=== PATIENT | female | born 1975 | race Caucasian/White ===

== ENCOUNTER 2019-12-26 08:02 | Emergency (ER) | payer OTHER, SELFPAY ==
[2019-12-26 08:24] VITALS: BP 132/83; PULSE 86; RESP 18; TEMP 36.7; O2SAT 98
--- NOTE | 2019-12-26 08:36 | ED.DENTAL ---
HPI - Dental/Oral General Chief complaint: Dental/Oral Stated complaint: tooth abscess Time Seen by Provider: 12/26/19 08:36 Source: patient Mode of arrival: ambulatory Limitations: no limitations History of Present Illness HPI Narrative: Bonnie Hernandez is a 44 yo female with depression, PTSD, comes to express care with pain and swelling on the lower right. Has 5 natural teeth left in the lower jaw upper teeth are dentures. States she has had difficulty finding care primarily due to insurance. This episode is been going on for 2 weeks Related Data Home Medications Medication Instructions Recorded Confirmed alprazolam 12/26/19 quetiapine 12/26/19 sertraline mg 12/26/19 Allergies Allergy/AdvReac Type Severity Reaction Status Date / Time Penicillins Allergy Mild Rash Verified 02/22/19 12:17 Review of Systems Review of Systems: Narrative: CONSTITUTIONAL: Denies fever, chills, sweats. EYES: Denies visual changes, redness, discharge. ENT: Denies rhinorrhea, congestion, sore throat, otalgia. Dental pain CARDIOVASCULAR: Denies chest pain, palpitations, edema. RESPIRATORY: Denies dyspnea, wheezing, cough GASTROINTESTINAL: Denies abdominal pain, nausea, vomiting, diarrhea. GENITOURINARY: Denies dysuria, hematuria, abnormal discharge SKIN: Denies rash or itching. NEUROLOGIC: Denies numbness, or focal weakness. PSYCHIATRIC: Denies anxiety or depression. [facility] Family History Family History Other Cervical cancer Social History Social History (Updated 12/26/19 @ 08:38 by Ceci Noel CNP) Smoking status: Former smoker Alcohol intake: current Comments At time of signature, I agree with nursing past medical, surgical, social and family history. There is no relevant family history pertinent to the presenting complaint. Exam Narrative: Exam Narrative: GENERAL: This is a well-nourished, well-developed patient, in mild distress. HEAD: normocephalic, atraumatic. EYES: Sclera clear/white. Vision is grossly intact. EARS: External ears normal. Hearing grossly intact. NOSE: External nose normal without nasal discharge, nares without redness, no rhinorrhea. THROAT: Mucous membranes moist, multiple dental carries and broken teeth on lower jaw NECK: Neck supple, CARDIOVASCULAR: Regular rate and rhythm without murmurs, gallops, or rubs. RESPIRATORY: Clear to auscultation. Breath sounds equal bilaterally. No wheezes, rales, or rhonchi. GASTROINTESTINAL: Abdomen soft, SKIN: warm, intact with no suspicious lesions or rash, good texture and turgor. NEURO: awake, alert, and oriented to person, place and time. There were no obvious focal neurologic abnormalities. Steady gait EXTREMITIES: Normal range of motion. BACK: Nontender without deformity Course Course Emergency Course: Started on clindamycin (due to PCN allergy) , started on tramadol and ibuprofen; must follow up with dentist Vital Signs Vital signs: Vital Signs Temperature 98.0 F 12/26/19 08:24 Pulse Rate 86 12/26/19 08:24 Respiratory Rate 18 12/26/19 08:24 Blood Pressure 132/83 12/26/19 08:24 Pulse Oximetry 98 12/26/19 08:24 Temperature 98.0 F 12/26/19 08:24 Pulse Rate 86 12/26/19 08:24 Respiratory Rate 18 12/26/19 08:24 Blood Pressure 132/83 12/26/19 08:24 Pulse Oximetry 98 12/26/19 08:24 MDM - Dental/Oral Differential Diagnosis Differential diagnosis: Likely gingival abscess, dental caries, dental abscess and other Discharge Plan Discharge Clinical Impression: Dental abscess Patient Disposition: Home, Self-Care Condition: Stable Instructions: Dental Abscess (ED) Additional Instructions: Follow-up with dental care such as [facility] dental school or further private provider Initiate antibiotic prescription as written; ibuprofen eat some food Prescriptions: New clindamycin HCl 300 mg capsule 300 mg PO Q8H Qty: 30 RF: 0 ibupr
== END 2019-12-26 08:56 | disposition home or self-care (01) ==
PROVIDERS: Emergency Provider Nurse Practitioner
DX: K04.7 Periapical abscess without sinus (principal); F32.9 Major depressive disorder, single episode, unspecified; F43.10 Post-traumatic stress disorder, unspecified; Z87.891 Personal history of nicotine dependence
CPT/HCPCS: 99213; G0463

== ENCOUNTER 2020-04-27 15:30 | Emergency (ER) | payer OTHER, SELFPAY ==
[2020-04-27 15:40] VITALS: BP 145/85; PULSE 102; RESP 16; TEMP 37.1; O2SAT 100
--- NOTE | 2020-04-27 16:20 | ED.DENTAL ---
HPI - Dental/Oral General Chief complaint: Dental/Oral Stated complaint: Tooth Pain Source: patient and RN notes reviewed Mode of arrival: ambulatory Limitations: no limitations History of Present Illness HPI Narrative: This is a 45-year-old white female that he came in to urgent care with complaints of tooth pain with gum swelling. Patient has decayed teeth at 23,24, 25, and 26. Patient has dentures to her upper teeth. She notes that she has to get an implant to her lower teeth and have a dental appointment next month. The patient denies SOB, CP, palpitation, extremity numbness, lightheadedness, dizziness, constipation, diarrhea, chills, or fever..She will be given antibiotic and a short course of pain medication. Patient noted that in the past she has taken clindamycin for her gum infection. Generalized tenderness noticed on labs MD Complaint: tooth pain Related Data Home Medications Medication Instructions Recorded Confirmed alprazolam 12/26/19 quetiapine 12/26/19 sertraline mg 12/26/19 Allergies Allergy/AdvReac Type Severity Reaction Status Date / Time Penicillins Allergy Mild Rash Verified 02/22/19 12:17 Review of Systems Review of Systems: All systems reviewed & are unremarkable except as noted in HPI and below (10 point system review) PMFSH Family History Family History Other Cervical cancer Social History Social History (Updated 12/26/19 @ 08:38 by Ceci Noel CNP) Smoking status: Former smoker Alcohol intake: current Exam Narrative: Exam Narrative: GENERAL: This is a well-nourished, well-developed patient, in no apparent distress. HEAD: normocephalic, atraumatic. EYES: PERRL. Sclera clear/white. Vision is grossly intact. EARS: External ears normal, auditory canals clear and without drainage, TMs normal without perforation. Hearing grossly intact. NOSE: External nose normal with no obvious nasal discharge, nares without redness, no rhinorrhea. THROAT: Mucous membranes moist, posterior pharynx clear. Teeth decay to numbers 23, 24, 25, 26. Edema to the lower gums and teeth with decay. NECK: Neck supple, non-tender without lymphadenopathy, masses or thyromegaly. CARDIOVASCULAR: Regular rate and rhythm without murmurs, gallops, or rubs. RESPIRATORY: Clear to auscultation. Breath sounds equal bilaterally. No wheezes, rales, or rhonchi. GASTROINTESTINAL: Abdomen soft, non-tender, nondistended. Bowel sounds are active. No hepato-splenomegaly, or palpable masses. No guarding. SKIN: warm, intact with no suspicious lesions or rash, good texture and turgor. NEURO: awake, alert, and oriented to person, place and time. There were no obvious focal neurologic abnormalities. Steady gait EXTREMITIES: Normal range of motion. No edema. No calf tenderness. Negative Homans sign bilaterally. BACK: Nontender without deformity or crepitance. No flank tenderness. Const: General: no acute distress Course Course Emergency Course: Patient will be given pain medication with antibiotic Vital Signs Vital signs: Vital Signs Temperature 98.7 F 04/27/20 15:40 Pulse Rate 102 H 04/27/20 15:40 Respiratory Rate 16 04/27/20 15:40 Blood Pressure 145/85 H 04/27/20 15:40 Pulse Oximetry 100 04/27/20 15:40 Temperature 98.7 F 04/27/20 15:40 Pulse Rate 102 H 04/27/20 15:40 Respiratory Rate 16 04/27/20 15:40 Blood Pressure 145/85 H 04/27/20 15:40 Pulse Oximetry 100 04/27/20 15:40 Discharge Plan Discharge Clinical Impression: Dental caries Patient Disposition: Home, Self-Care Condition: Stable Instructions: Antibiotic Form, Toothache (ED) Additional Instructions: Avoid temperature extremes May apply heat or ice to the face Gentle brushing and flossing Antibiotic as directed Tylenol for lesser pain Use ibuprofen regularly Use the medication as provided for severe pain--caution each tablet contains 325
== END 2020-04-27 16:23 | disposition home or self-care (01) ==
PROVIDERS: Emergency Provider Nurse Practitioner
DX: K02.9 Dental caries, unspecified (principal); Z87.891 Personal history of nicotine dependence
CPT/HCPCS: 99213; G0463

== ENCOUNTER 2021-04-06 12:06 | Emergency (ER) | payer BC, SELFPAY ==
[2021-04-06 12:18] VITALS: BP 115/83; PULSE 95; RESP 16; TEMP 36.3; O2SAT 100
--- NOTE | 2021-04-06 12:57 | ED.BACK ---
HPI - Back Pain/Injury General Chief Complaint: Extremity Injury, Upper Stated Complaint: left shoulder pain Source: patient and RN notes reviewed Limitations: no limitations History of Present Illness HPI Narrative: The unvaccinated patient, non-smoker/none drinker who is on several meds inc for mood, presents with left shoulder pain. Patient states she awoke with left medial scapular pain that is mild, worse with motion, or at endpoints of deep breathing. No fever, cough, shortness of breath, cough/wheeze , neck pain, numbness/weakness, radiating pain; declines Covid testing, CXR Related Data Home Medications Medication Instructions Recorded Confirmed alprazolam 0.25 mg PO PRN PRN 12/26/19 04/06/21 quetiapine 400 mg PO HS 12/26/19 04/06/21 sertraline 100 mg PO DAILY 12/26/19 04/06/21 pantoprazole 40 mg PO DAILY 04/06/21 04/06/21 quetiapine 25 mg PO TID 04/06/21 04/06/21 Allergies Allergy/AdvReac Type Severity Reaction Status Date / Time Penicillins Allergy Mild Rash Verified 04/06/21 12:21 Review of Systems Review of Systems: General/Constitutional: No weight loss,fever Eyes: N0: Redness,discharge Ears/Nose/Throat: No: Epistaxis,ear discharge Respiratory: Denies: Hemoptysis Gastrointestinal: No Vomiting, Bleeding-rectal Skin: No Lumps, eruption Neurologic: No Focal Weakness,Sz Hematologic: Denies: Petechiae/Purpura Psychiatric: No: Suicida ideationl All Other Systems: Reviewed and Negative [facility] Family History Family History Other Cervical cancer Social History Social History (Updated 12/26/19 @ 08:38 by Ceci Noel CNP) Smoking status: Former smoker Alcohol intake: current Comments At time of signature, agree with nursing past medical, surgical, social and family history. There is no relevant family history pertinent to the presenting complaint Exam Narrative: General Appearance: Well appearing, Conjunctiva clear Mouth/Throat: Normal appearing, Normal lips, Supple Respiratory: Airway patent, No respiratory distress Musculoskeletal: Full ROM, point tenderness of the left rhomboid/scapular margin Cardio pulmonary: CTA, RRR Abdomen: Soft, Non-tender, No massess, Skin: Warm, Dry Neurological: A&O x3, Normal affect Course Vital Signs Vital signs: Vital Signs Temperature 97.4 F L 04/06/21 12:18 Pulse Rate 95 04/06/21 12:18 Respiratory Rate 16 04/06/21 12:18 Blood Pressure 115/83 04/06/21 12:18 Pulse Oximetry 100 04/06/21 12:18 Temperature 97.4 F L 04/06/21 12:18 Pulse Rate 95 04/06/21 12:18 Respiratory Rate 16 04/06/21 12:18 Blood Pressure 115/83 04/06/21 12:18 Pulse Oximetry 100 04/06/21 12:18 Discharge Plan Discharge Clinical Impression: Strain of rhomboid muscle Qualifiers: Encounter type: initial encounter Qualified Code(s): S29.012A - Strain of muscle and tendon of back wall of thorax, initial encounter Patient Disposition: Home, Self-Care Condition: Stable Instructions: Thoracic Back Strain (ED) Prescriptions: New prednisone 20 mg tablet 60 mg PO DAILY Qty: 9 RF: 0 acetaminophen-codeine 300-30 mg tablet 1 - 1.5 tablet PO HS PRN (Reason: pain) Qty: 20 RF: 0 No Action quetiapine 25 mg tablet 25 mg PO TID RF: 0 pantoprazole 40 mg tablet,delayed release (DR/EC) 40 mg PO DAILY RF: 0 sertraline 100 mg tablet 100 mg PO DAILY RF: 0 alprazolam 0.25 mg tablet 0.25 mg PO PRN PRN (Reason: Anxiety) RF: 0 quetiapine 400 mg tablet 400 mg PO HS RF: 0 tramadol 50 mg tablet 50 mg PO Q6H PRN (Reason: pain) Qty: 10 RF: 0 Follow-up/Referrals: Roz,KIKI Sam [Primary Care Provider] -
== END 2021-04-06 13:05 | disposition home or self-care (01) ==
PROVIDERS: Emergency Provider Emergency Medicine; PCP Physician Assistant
DX: S29.012A Strain of muscle and tendon of back wall of thorax, initial encounter (principal); X58.XXXA Exposure to other specified factors, initial encounter; Z87.891 Personal history of nicotine dependence; K21.9 Gastro-esophageal reflux disease without esophagitis; F41.9 Anxiety disorder, unspecified; F32.A Depression, unspecified
CPT/HCPCS: 99213; G0463

== ENCOUNTER 2021-12-13 13:25 | Emergency (ER) | payer OTHER, BC, SELFPAY ==
--- NOTE | ~2021-12-13 | XR_ITS ---
XR foot RT min 3V DATE: 12/13/2021 13:54 INDICATION: Injury yesterday. Lateral pain at fourth and fifth metatarsal region TECHNIQUE: 4 views COMPARISON: None FINDINGS: There is mild osteoarthritis at the first metatarsophalangeal joint. Mild hallux valgus and bunion deformity. No fracture or dislocation, periosteal reaction or bone destruction. IMPRESSION: Mild osteoarthritis at first metatarsophalangeal joint Mild hallux valgus and bunion deformity Reviewed, dictated and finalized at location A.
[2021-12-13 13:45] VITALS: BP 148/86; PULSE 103; RESP 18; TEMP 37.4; O2SAT 99
--- NOTE | 2021-12-13 13:52 | ED.LOWEXIN ---
HPI - Extremity Injury (Lower) General Chief Complaint: Extremity Injury, Lower Stated Complaint: rt foot injury/work related injury Time Seen by Provider: 12/13/21 13:50 Source: patient, RN notes reviewed and old records reviewed Mode of arrival: ambulatory Limitations: no limitations History of Present Illness HPI Narrative: 46-year-old female who presents to [facility] care with complaints of injury to her right foot which occurred at work yesterday when a 10 foot ladder mechanism fell onto the lateral aspect of her right foot. Patient has small abrasion on the lateral side of her foot with minimal swelling verbalized. Patient reports that the pain to her foot increases with weight bearing. Patient has been taking Ibuprofen and Naprosyn for her discomfort. She denies any tingling or numbness to her right foot, has full ROM. MD complaint: foot injury Onset (ago): day(s) (1) Injury: Right: foot (lateral aspect) Type of Injury: blunt Severity scale (1-10): 4 Exacerbating factors: weight bearing Treatments prior to arrival: NSAIDS Related Data Home Medications Medication Instructions Recorded Confirmed quetiapine 400 mg tablet 400 mg PO HS 12/26/19 12/13/21 sertraline 100 mg tablet 100 mg PO DAILY 12/26/19 12/13/21 quetiapine 25 mg tablet 25 mg PO QAM 04/06/21 12/13/21 divalproex 250 mg tablet,delayed 1 tablet PO HS 12/13/21 12/13/21 release Allergies Allergy/AdvReac Type Severity Reaction Status Date / Time Penicillins Allergy Mild Rash Verified 12/13/21 13:48 Review of Systems Review of Systems: CONSTITUTIONAL: Denies fever, chills, or sweats. EYES: Denies visual changes, redness, or discharge. ENT: Denies rhinorrhea, congestion, sore throat, or otalgia. CARDIOVASCULAR: Denies chest pain, palpitations, or edema. RESPIRATORY: Denies cough or dyspnea. GASTROINTESTINAL: Denies abdominal pain, nausea, vomiting, or diarrhea. GENITOURINARY: Denies dysuria or hematuria. SKIN: Denies rash or itching. MUSCULOSKELETAL: Denies back pain, positive for right foot pain lateral aspect, or myalgia. NEUROLOGIC: Denies headache, numbness, or weakness. PSYCHIATRIC: History of anxiety and depression. [facility] Past Medical History Medical History (Updated 12/13/21 @ 14:33 by Kayla Pennington NP) Anxiety and depression Arthritis of both hips Panic attacks PTSD (post-traumatic stress disorder) Surgical History Surgical History (Updated 12/13/21 @ 14:35 by Kayla Pennington NP) H/O cone biopsy of cervix Family History Family History Other Cervical cancer Social History Social History (Updated 12/26/19 @ 08:38 by Ceci Noel CNP) Smoking status: Former smoker Alcohol intake: current Comments At time of signature, agree with nursing past medical, surgical, social and family history. There is no relevant family history pertinent to the presenting complaint Exam Narrative: GENERAL: Well-appearing, well-nourished, and in no acute distress. HEAD: Normocephalic, atraumatic. EYES: PERRLA and EOMI. ENT: Nares clear, no rhinorrhea or epistaxis. Mucous membranes moist.TM's normal with good light reflex, throat pink with no lesion or exudates. NECK: Supple. no lymphadenopathy CHEST: Clear to auscultation. No respiratory distress.SAO2 99% on room air HEART: Regular rate and rhythm. No murmur heard. Normal peripheral pulses. ABDOMEN: Soft, nontender, nondistended, normal active bowel sounds. EXTREMITIES: Normal range of motion. no edema.Exception noted to right lateral foot with small amount of edema to lateral right foot with small abrasion noted related to injury. Patient having some increase in pain with weight bearing on her right foot with some limping gait noted. Circulation, sensation and mobility is intact, pulses strong to right foot. SKIN: Warm, dry, no rash. NEURO: No focal deficits. Alert and oriented x3. Course Course Level of Care: Express Care Visit
== END 2021-12-13 14:21 | disposition home or self-care (01) ==
PROVIDERS: Emergency Provider Registered Nurse; PCP Physician Assistant
DX: S90.31XA Contusion of right foot, initial encounter (principal); W20.8XXA Other cause of strike by thrown, projected or falling object, initial encounter; Z87.891 Personal history of nicotine dependence; M16.0 Bilateral primary osteoarthritis of hip; F41.9 Anxiety disorder, unspecified; F32.A Depression, unspecified; F43.10 Post-traumatic stress disorder, unspecified
CPT/HCPCS: 73630; 99213; G0463

== ENCOUNTER 2023-09-27 09:10 | Emergency (ER) | payer BC, SELFPAY ==
--- NOTE | 2023-09-27 09:21 | ED.GENADULT ---
HPI - General Adult General Chief complaint: Skin/Abscess/Foreign Body Stated complaint: right pinkie toe red,swollen Time Seen by Provider: 09/27/23 09:31 Source: patient, RN notes reviewed and old records reviewed Mode of arrival: ambulatory Limitations: no limitations History of Present Illness HPI narrative: 48-year-old female presents to the [facility] with a right lateral 5th toe, red and swollen for 3 days. No treatment prior to arrival Patient denies any trauma. Onset (ago): day(s) (3) Treatments prior to arrival: none Related Data Home Medications Medication Instructions Recorded Confirmed sertraline 100 mg tablet 100 mg PO DAILY 12/26/19 09/27/23 atenolol 25 mg tablet 25 mg PO DAILY 09/27/23 09/27/23 atorvastatin 20 mg tablet 20 mg PO DAILY 09/27/23 09/27/23 divalproex 500 mg tablet,extended 500 mg PO DAILY 09/27/23 09/27/23 release 24 hr ergocalciferol (vitamin D2) 1,250 1,250 mcg PO WEEKLY 09/27/23 09/27/23 mcg (50,000 unit) capsule lorazepam 0.5 mg tablet 0.5 mg PO DAILY 09/27/23 09/27/23 olanzapine 15 mg-samidorphan 10 mg 1 tablet PO DAILY 09/27/23 09/27/23 tablet (Lybalvi) pantoprazole 40 mg tablet,delayed 40 mg PO DAILY 09/27/23 09/27/23 release trazodone 100 mg tablet 100 mg PO DAILY 09/27/23 09/27/23 Allergies Allergy/AdvReac Type Severity Reaction Status Date / Time Penicillins Allergy Mild Rash Verified 09/27/23 09:22 Review of Systems Review of Systems: All systems reviewed & are unremarkable except as noted in HPI and below Constitutional: Constitutional: Reports no additional constitutional complaints Eyes: Eyes: Reports no additional eye complaints ENT: Reports system reviewed and no additional complaints, except as documented Cardiovascular: Cardiovascular: Reports no additional cardiovascular complaints, Denies chest pain and Denies dyspnea Respiratory: Respiratory: Reports no additional respiratory complaints, Denies chest congestion, Denies cough and Denies dyspnea Gastrointestinal: Gastrointestinal: Reports no additional gastrointestinal complaints, Denies abdominal pain, Denies nausea and Denies vomiting Musculoskeletal: Musculoskeletal: Reports as per HPI, Denies arthralgias, Denies joint swelling and Denies numbness Integumentary/Breasts: Skin/Breast: Reports as per HPI Neurologic: Reports system reviewed and no additional complaints, except as documented Psychiatric: Psychiatric: Reports no additional psychiatric complaints Allergic/Immunologic: Allergic/Immunologic: Reports no additional allergic/immunologic complaints [facility] Past Medical History Medical History (Updated 09/27/23 @ 09:[address] APRN) Anxiety and depression Arthritis of both hips H/O gastroesophageal reflux (GERD) High cholesterol Panic attacks PTSD (post-traumatic stress disorder) Surgical History Surgical History H/O cone biopsy of cervix Family History Family History Other Cervical cancer Social History Social History Smoking status: Former smoker Alcohol intake: current Comments At the time of my signature, I reviewed and agree with the nursing past medical, surgical, social, and family history. There is no relevant family history pertinent to the patient complaint. Exam Const: General: cooperative, healthy appearing, comfortable, no acute distress, well developed, alert and well nourished Nutritional Appearance: well nourished Orientation/consciousness: patient oriented x3 Limitations: no limitations HENMT: Head: normal to inspection Ears: external ears normal Face/Nose/Sinus: Normal external nose present, Normal nares present, Normal nasal mucous membranes and turbinates present, normal facial exam and face symmetric Face and sinus: normal facial exam and face symmetric Eyes: Ge
[2023-09-27 09:24] VITALS: BP 131/66; PULSE 73; RESP 16; TEMP 36.4; O2SAT 99
[2023-09-27 09:29] VITALS: BP 131/66; PULSE 73; RESP 16; TEMP 36.4; O2SAT 99
== END 2023-09-27 09:44 | disposition home or self-care (01) ==
PROVIDERS: Emergency Provider Nurse Practitioner; PCP Physician Assistant
DX: L03.031 Cellulitis of right toe (principal); F41.9 Anxiety disorder, unspecified; F32.A Depression, unspecified; M16.0 Bilateral primary osteoarthritis of hip; K21.9 Gastro-esophageal reflux disease without esophagitis; E78.00 Pure hypercholesterolemia, unspecified; F41.0 Panic disorder [episodic paroxysmal anxiety]; Z87.891 Personal history of nicotine dependence
CPT/HCPCS: 99213; G0463

== ENCOUNTER 2024-07-15 08:33 | Emergency (ER) | payer BC, OTHER, SELFPAY ==
--- NOTE | 2024-07-15 08:35 | ED_ITS ---
HPI - URI/Sore Throat General Chief Complaint: Upper Respiratory Infection Stated Complaint: head pressure,cough, Fever Time Seen by Provider: 07/15/24 09:05 Source: patient, RN notes reviewed and old records reviewed Mode of arrival: ambulatory Limitations: no limitations History of Present Illness HPI Narrative: 49-year-old female presents with to the [facility] complaints of 3 day history of head congestion, chest congestion sneezing. Has felt feverish. Has taken Mucinex and ibuprofen. Onset (ago): day(s) (3) Treatments prior to arrival: cold medicine Related Data Home Medications ?Medication ?Instructions ?Recorded ?Confirmed ?Last Taken ?Type sertraline 100 mg tablet 100 mg PO DAILY 12/26/19 09/27/23 Unknown History atenolol 25 mg tablet 25 mg PO DAILY 09/27/23 07/15/24 Unknown History divalproex 500 mg tablet,extended 500 mg PO DAILY 09/27/23 09/27/23 Unknown History release 24 hr olanzapine 15 mg-samidorphan 10 mg 1 tablet PO DAILY 09/27/23 09/27/23 Unknown History tablet (Lybalvi) pantoprazole 40 mg tablet,delayed 40 mg PO DAILY 09/27/23 09/27/23 Unknown History release Allergies Allergy/AdvReac Type Severity Reaction Status Date / Time Penicillins Allergy Mild Rash Verified 07/15/24 09:17 Review of Systems Review of Systems: All systems reviewed & are unremarkable except as noted in HPI and below Constitutional: Constitutional: Reports no additional constitutional complaints ENT: Reports as per HPI, Reports nasal congestion, Reports sinus pressure (Frontal) and Reports other (Sneezing) Cardiovascular: Cardiovascular: Reports no additional cardiovascular complaints, Denies chest pain and Denies dyspnea Respiratory: Respiratory: Reports as per HPI, Reports chest congestion, Denies cough and Denies dyspnea Musculoskeletal: Musculoskeletal: Reports no additional musculoskeletal complaints Integumentary/Breasts: Skin/Breast: Reports system reviewed and no additional complaints, except as docu [facility] Past Medical History Medical History High cholesterol H/O gastroesophageal reflux (GERD) Panic attacks Anxiety and depression Arthritis of both hips PTSD (post-traumatic stress disorder) Surgical History Surgical History H/O cone biopsy of cervix Family History Family History Other Cervical cancer Social History Social History Smoking status: Former smoker Alcohol intake: current Comments At the time of my signature, I reviewed and agree with the nursing past medical, surgical, social, and family history. There is no relevant family history pertinent to the patient complaint. Exam Const: General: cooperative, healthy appearing, comfortable, no acute distress, well developed, alert and well nourished Nutritional Appearance: well nourished Orientation/consciousness: patient oriented x3 Limitations: no limitations HENMT: Head: normal to inspection Ears: hearing grossly normal bilaterally, external ears normal, TM's normal bilaterally, EAC's normal, mastoids normal and no periauricular adenopathy Face/Nose/Sinus: Normal external nose present, Normal nares present, Normal nasal mucous membranes and turbinates present and No nasal discharge present Face and sinus: face symmetric, no erythema, no edema and sinus tenderness frontal Mouth: Yes Normal oral and palatal mucosa present, Yes lip normal, Yes tongue normal and Yes moist mucous membranes Throat: posterior oropharynx normal, tonsils normal, uvula midline and no uvular edema Eyes: General: appearance normal, both eyes and all related structures Alignment and Position: alignment normal Neck: Neck: normal visual inspection, full ROM, no lymphadenopathy and no meningeal signs Chest: Chest palpation & inspection: normal inspection of the chest Resp: Effort & Inspection: normal respiratory effort and able to speak in complete sentences Auscultation: clear to auscultation bilaterally, no crackles, no rales, no rhonchi and no wheezes Cardio: Rate: regular rate Skin: General skin exam: normal color and no rashes or lesions noted Neuro: General: patient oriented x3, gait normal, moves all extremities and no meningeal signs Cognition (Neuro): normal cognition Speech: normal speech Gait exam (Neuro): Normal gait present Extrem: General: normal to inspection, full ROM, capillary refill normal and normal gait Psych: Appearance: grossly normal and well kempt Mental Status: mental status grossly normal Speech and movement: Normal speech and movement present and Clear speech present Affect: normal affect Attitude: cooperative Course Course Level of Care: Express Care Visit Vital Signs Vital signs: Vital Signs Temperature 97.1 F L 07/15/24 08:49 Pulse Rate 72 07/15/24 08:49 Respiratory Rate 16 07/15/24 08:49 Blood Pressure 107/67 07/15/24 08:49 Pulse Oximetry 99 07/15/24 08:49 Oxygen Delivery Room Air 07/15/24 08:49 Temperature 97.1 F L 07/15/24 08:49 Pulse Rate 72 07/15/24 08:49 Respiratory Rate 16 07/15/24 08:49 Blood Pressure 107/67 07/15/24 08:49 Pulse Oximetry 99 07/15/24 08:49 Oxygen Delivery Room Air 07/15/24 08:49 Reviewed MDM - URI/Sore Throat MDM Narrative Medical decision making narrative: Patient sitting comfortably in exam room. Nontoxic, vitals stable. Patient in no acute distress. Patient presents with 3 day history of URI symptoms. Exam with no acute findings other than pressure of the frontal sinus Patient appropriate for outpatient treatment of viral URI Discharge instructions reviewed with patient, as well as provided in writing per nursing staff. The instructions also include specific and strict return/GO TO THE ER as well as f/u information. All questions have been answered, and the patient deny any further questions with discharge and discharge plan. Some parts of this dictation were generated by voice recognition software and may contain typographical and/or grammatical inaccuracies. Differential Diagnosis Differential diagnosis: Likely upper respiratory infection, otitis media, sinusitis, viral infection and bronchitis Critical Care Time Critical Care Time Critical Care Time: No Discharge Plan Discharge Clinical Impression: Upper respiratory infection Qualifiers: URI type: unspecified viral URI Qualified Code(s): J06.9 - Acute upper respiratory infection, unspecified Patient Disposition: Home, Self-Care Condition: Stable Instructions: Antibiotic Form, Upper Respiratory Infection (ED) Additional Instructions: Your symptoms are likely due to a viral illness, which is not treated with antibiotics. Typically viral infections last 7-10 days, can linger for couple of weeks. It is very important to treat your symptoms. Drink plenty of water, Gatorade, Pedialyte, ice pops or Jell-O. -Alternate Tylenol and Motrin per package directions for fever or pain. You can alternate every 4 hours -Antihistamine medication such as Zyrtec/Claritin/Sonal during the day can help improve symptoms. -doing daily nasal irrigations can help relieve pressure your sinuses. Things like a Neti pot -Use Flonase twice a day for 5 days then daily to help reduce the inflammation and dry up your sinuses. -You can also use Mucinex. Be sure to drink plenty of water with this medication at least 8 ounces with every dose and it is important to drink 8 to 10 glasses of water per day. Water is a natural decongestant -Eat and drink things that are easy to swallow, like tea or soup, or popsicles. -Oral rinses such as: Salt water gargles and/or may use topical anesthetic (eg. Chloraseptic spray) or lozenges to relieve dryness or throat pain). -Frequent hand washing or hand environmental compliance specialist is one of the best ways to prevent spread of infection. -Using a vaporizer or humidifier at night will also help thin secretions and help with coughing up phlegm. -Follow up with primary care provider in 7-10 days if condition is not improving - For new or worsening symptoms go directly to the nearest ER Patient Language: Ukrainian Prescriptions: New fluticasone propionate [24 Hour Allergy Relief] 50 mcg/actuation spray,suspension 2 spray intranasal DAILY Qty: 16 0RF Rx Instructions: administer into each nostril No Action atenolol 25 mg tablet 25 mg PO DAILY pantoprazole 40 mg tablet,delayed release (DR/EC) 40 mg PO DAILY divalproex 500 mg tablet extended release 24 hr 500 mg PO DAILY Lybalvi 15-10 mg tablet 1 tablet PO DAILY sertraline 100 mg tablet 100 mg PO DAILY Follow-up/Referrals: Roz,KIKI Travis [Primary Care Provider] - 2 Weeks ([facility] care follow up ) Stand Alone Forms: Work/School Release IP Time of Disposition: 09:18
[2024-07-15 08:49] VITALS: BP 107/67; PULSE 72; RESP 16; TEMP 36.2; O2SAT 99
== END 2024-07-15 09:25 | disposition home or self-care (01) ==
PROVIDERS: Emergency Provider Nurse Practitioner; PCP Physician Assistant
DX: J06.9 Acute upper respiratory infection, unspecified (principal); E78.00 Pure hypercholesterolemia, unspecified; K21.9 Gastro-esophageal reflux disease without esophagitis; M16.0 Bilateral primary osteoarthritis of hip; F41.9 Anxiety disorder, unspecified; F32.A Depression, unspecified
CPT/HCPCS: 99213; G0463

== ENCOUNTER 2024-12-02 09:36 | Emergency (ER) | payer OTHER, SELFPAY ==
--- NOTE | 2024-12-02 09:41 | ED_ITS ---
HPI - Back Pain/Injury General Chief Complaint: Back Pain/Injury Stated Complaint: Back Pain Time Seen by Provider: 12/02/24 09:45 Source: patient, RN notes reviewed and old records reviewed Mode of arrival: ambulatory Limitations: no limitations History of Present Illness HPI Narrative: 49-year-old female presents to the [facility] with complaints of low back pain since last night. Patient reports that she was doing yd work with her , doing a lot of pushing pulling and lifting. Denies any loss or retention of bowel or bladder. No numbness or tingling in the extremities. Denies any urinary symptoms. Denies any abdominal pain. Onset (ago): day(s) (1) Work related injury: No Related Data Home Medications ?Medication ?Instructions ?Recorded ?Confirmed ?Last Taken ?Type sertraline 100 mg tablet 100 mg PO DAILY 12/26/19 09/27/23 Unknown History atenolol 25 mg tablet 25 mg PO DAILY 09/27/23 07/15/24 Unknown History divalproex 500 mg tablet,extended 500 mg PO DAILY 09/27/23 09/27/23 Unknown History release 24 hr olanzapine 15 mg-samidorphan 10 mg 1 tablet PO DAILY 09/27/23 09/27/23 Unknown History tablet (Lybalvi) pantoprazole 40 mg tablet,delayed 40 mg PO DAILY 09/27/23 09/27/23 Unknown History release atorvastatin 20 mg tablet mg 12/02/24 Unknown History fluoxetine 20 mg tablet mg 12/02/24 Unknown History lorazepam 0.5 mg tablet mg 12/02/24 Unknown History trazodone 100 mg tablet mg 12/02/24 Unknown History Allergies Allergy/AdvReac Type Severity Reaction Status Date / Time Penicillins Allergy Mild Rash Verified 12/02/24 09:38 Review of Systems Review of Systems: All systems reviewed & are unremarkable except as noted in HPI and below Constitutional: Constitutional: Reports no additional constitutional complaints ENT: Reports system reviewed and no additional complaints, except as documented Cardiovascular: Cardiovascular: Reports no additional cardiovascular complaints, Denies chest pain and Denies dyspnea Respiratory: Respiratory: Reports no additional respiratory complaints, Denies chest congestion, Denies cough and Denies dyspnea Genitourinary: Genitourinary: Reports no additional female genitourinary complaints Musculoskeletal: Musculoskeletal: Reports as per HPI and Reports back pain (lower back) Integumentary/Breasts: Skin/Breast: Reports system reviewed and no additional complaints, except as docu [facility] Past Medical History Medical History High cholesterol H/O gastroesophageal reflux (GERD) Panic attacks Anxiety and depression Arthritis of both hips PTSD (post-traumatic stress disorder) Surgical History Surgical History H/O cone biopsy of cervix Family History Family History Other Cervical cancer Social History Social History Smoking status: Former smoker Alcohol intake: current Comments At the time of my signature, I reviewed and agree with the nursing past medical, surgical, social, and family history. There is no relevant family history pertinent to the patient complaint. Exam Const: General: cooperative, healthy appearing, comfortable, no acute distress, well developed, alert and well nourished Nutritional Appearance: well nourished Orientation/consciousness: patient oriented x3 Limitations: no limitations HENMT: Head: normal to inspection Eyes: General: appearance normal, both eyes and all related structures Alignment and Position: alignment normal Neck: Neck: normal visual inspection, full ROM, no lymphadenopathy and no meningeal signs Chest: Chest palpation & inspection: normal inspection of the chest Resp: Effort & Inspection: normal respiratory effort and able to speak in complete sentences Auscultation: clear to auscultation bilaterally, no crackles, no rales, no rhonchi and no wheezes Cardio: Rate: regular rate GI: GI Palp: No abdominal tenderness Back/Spine/Pelvis: Back: back tenderness Cervical Spine: normal cervical lordosis, cervical ROM normal, No cervical muscular tenderness and No Cervical spine tenderness Thoracic/Lumbar Spine: paraspinal muscle tenderness bilaterally in the lower lumbar, No thoracic spinal tenderness and No lumbar spinal tenderness Pelvis: no pain with anterior-posterior compression and no pain with lateral compression Skin: General skin exam: normal color and no rashes or lesions noted Neuro: General: patient oriented x3, gait normal, moves all extremities and no meningeal signs Cognition (Neuro): normal cognition Speech: normal speech Gait exam (Neuro): Normal gait present Extrem: General: normal to inspection, full ROM, capillary refill normal and normal gait Psych: Appearance: grossly normal and well kempt Mental Status: mental status grossly normal Speech and movement: Normal speech and movement present and Clear speech present Affect: normal affect Attitude: cooperative Course Course Level of Care: Express Care Visit Vital Signs Vital signs: Vital Signs Temperature 96.2 F L 12/02/24 09:45 Pulse Rate 79 12/02/24 09:45 Respiratory Rate 16 12/02/24 09:45 Blood Pressure 120/72 12/02/24 09:45 Pulse Oximetry 99 12/02/24 09:45 Oxygen Delivery Room Air 12/02/24 09:45 Temperature 96.2 F L 12/02/24 09:45 Pulse Rate 79 12/02/24 09:45 Respiratory Rate 16 12/02/24 09:45 Blood Pressure 120/72 12/02/24 09:45 Pulse Oximetry 99 12/02/24 09:45 Oxygen Delivery Room Air 12/02/24 09:45 Reviewed MDM - Back Pain/Injury MDM Narrative Medical decision making narrative: Patient sitting in exam room. Patient is nontoxic, vitals are stable. Patient with low back pain with no midline tenderness. No loss or retention of bowel or bladder. Walks with a normal gait. No numbness or tingling in extremities Denies urinary symptoms. Patient appropriate for outpatient treatment with close follow-up Discharge instructions reviewed with patient, as well as provided in writing per nursing staff. The instructions also include specific and strict return/GO TO THE ER as well as f/u information. All questions have been answered, and the patient deny any further questions with discharge and discharge plan. Some parts of this dictation were generated by voice recognition software and may contain typographical and/or grammatical inaccuracies. Differential Diagnosis Differential diagnosis: Likely lumbar radiculopathy, sciatica, strain of lumbar region and pyelonephritis Critical Care Time Critical Care Time Critical Care Time: No Discharge Plan Discharge Clinical Impression: Strain of lumbar region Qualifiers: Encounter type: initial encounter Qualified Code(s): S39.012A - Strain of muscle, fascia and tendon of lower back, initial encounter Patient Disposition: Home Condition: Stable Instructions: Low Back Strain (ED), Lower Back Exercises (ED) Additional Instructions: Take ibuprofen as directed to decrease inflammation and to help pain. Take Baclofen (muscle relaxer) as directed. Do not drink, drive, operate machinery, or do anything dangerous while taking this medication Exercise:Combine aerobic exercise, like walking or swimming, with specific exercises to keep the muscles in your back and abdomen strong and flexible. Proper Lifting:Be sure to lift heavy items with your legs, not your back. Do not bend over to pick something up. Keep your back straight and bend at your knees. Weight:Maintain a healthy weight. Being overweight puts added stress on your lower back. Avoid Smoking:Both the smoke and the nicotine cause your spine to age faster than normal. Proper Posture:Good posture is important for avoiding future problems. A therapist can teach you how to safely stand, sit, and lift. Use warm moist heat to help with pain. Using topical such as Biofreeze, Raji-Villalobos or Aspercreme can also help Follow up with Primary provider in 2-3 days, This may become a chronic condition and they will be the one to help manage your pain and order additional testing. Go to the nearest ER if you develop problems with bladder/bowel function, weakness or loss of feeling in one or both of your legs. Patient Language: Salvadorean Prescriptions: New baclofen 10 mg tablet 10 mg PO TID PRN (Reason: muscle pain) Qty: 15 0RF ibuprofen 600 mg tablet 600 mg PO TID PRN (Reason: fever or pain) Qty: 30 0RF lidocaine [Lidocan III] 5 % adhesive patch,medicated 1 patch topical DAILY Qty: 15 0RF Rx Instructions: leave on most painful area for up to 12 hrs No Action atenolol 25 mg tablet 25 mg PO DAILY pantoprazole 40 mg tablet,delayed release (DR/EC) 40 mg PO DAILY divalproex 500 mg tablet extended release 24 hr 500 mg PO DAILY Lybalvi 15-10 mg tablet 1 tablet PO DAILY fluticasone propionate [24 Hour Allergy Relief] 50 mcg/actuation spray,suspension 2 spray intranasal DAILY Qty: 16 0RF Rx Instructions: administer into each nostril sertraline 100 mg tablet 100 mg PO DAILY atorvastatin 20 mg tablet lorazepam 0.5 mg tablet trazodone 100 mg tablet fluoxetine 20 mg tablet Follow-up/Referrals: Roz,KIKI Travis [Primary Care Provider] - 2 Weeks ([facility] care follow up) Stand Alone Forms: Work/School Release IP Time of Disposition: 10:03
[2024-12-02 09:45] VITALS: BP 120/72; PULSE 79; RESP 16; TEMP 35.7; O2SAT 99
== END 2024-12-02 10:15 | disposition home or self-care (01) ==
PROVIDERS: Emergency Provider Nurse Practitioner; PCP Physician Assistant
DX: S39.012A Strain of muscle, fascia and tendon of lower back, initial encounter (principal); Z79.899 Other long term (current) drug therapy; Z87.891 Personal history of nicotine dependence; X50.0XXA Overexertion from strenuous movement or load, initial encounter
CPT/HCPCS: 99213; G0463